=== PATIENT | male | born 1935 | race American Indian/Alaskan Native ===

== ENCOUNTER 2019-01-25 11:18 | Emergency (ER) | payer MEDICARE ==
[2019-01-25 11:25] VITALS: BP 152/78
--- NOTE | 2019-01-25 11:33 | Event Note ---
ED Screening Note Date of service: 01/25/19 Time: 11:30 ED Screening Note: 83 y/o male comes in for chronic pain that was exacerbated by lifting luggages. This initial assessment/diagnostic orders/clinical plan/treatment(s) is/are subject to change based on patients health status, clinical progression and re- assessment by fellow clinical providers in the ED. Further treatment and workup at subsequent clinical providers discretion. Patient/guardian urged not to elope from the ED as their condition may be serious if not clinically assessed and managed. Initial orders include:
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
--- NOTE | 2019-01-25 15:36 | XRay Report ---
Thoracic spine 3 views INDICATION: Back pain following injury IMPRESSION: There appears to be loss of height involving several upper thoracic spine vertebral pooja s, age indeterminate but they appear to represent T5 and T7. If there has been recent injury a CT of the thoracic spine would be useful for further evaluation given the degree of kyphosis and osteopenia . Signer Name: Martínez Powers MD Signed: 01/25/2019 3:32 PM Workstation Name: [id number]
--- NOTE | 2019-01-25 15:36 | XRay Report ---
Right shoulder 3 views INDICATION: Right shoulder pain IMPRESSION: No fracture or subluxation of the right shoulder is identified. Signer Name: Martínez Powers MD Signed: 01/25/2019 3:32 PM Workstation Name: [id number]
== END 2019-01-25 15:53 | disposition home or self-care (01) ==
LOC: ED 11:18
DX: M25.511 Pain in right shoulder (principal); M54.6 Pain in thoracic spine; M79.10 Myalgia, unspecified site; M19.90 Unspecified osteoarthritis, unspecified site; M10.9 Gout, unspecified
CPT/HCPCS: 72072